=== PATIENT | female | born 1955 | race Caucasian/White ===

== ENCOUNTER 2024-04-15 10:51 | Emergency (ER) | payer MEDICARE, OTHER ==
[~2024-04-15] VITALS: Ht 162.6 cm; Wt 85.0 kg
[2024-04-15 10:59] VITALS: BP 145/85; PULSE 92; O2SAT 96
[2024-04-15 12:36] VITALS: RESP 16; TEMP 97.9
== END 2024-04-15 12:36 | disposition home or self-care (01) ==
LOC: ER 10:52
DX: M25.562 Pain in left knee (principal); Z88.8 Allergy status to other drugs, medicaments and biological substances
CPT/HCPCS: 73564; 99283